=== PATIENT | male | born 1975 | race Two or more races ===

== ENCOUNTER 2016-11-18 22:27 | Emergency (ER) | payer BC ==
[~2016-11-18] VITALS: Ht 180.3 cm; Wt 89.4 kg
[2016-11-18] MEDS ORDERED: FAMOTIDINE (10MG/ML) 2ML VL IV ONE (23:45)
[2016-11-18] MEDS ORDERED: methylPREDNISolone SOD SUCC 125 MG/2 ML VL IV ONE (23:45)
[2016-11-18] MEDS ORDERED: diphenhdrAMINE HCL 50 MG/1 ML VL IV ONE (23:45)
[2016-11-19 05:30] VITALS: BP 113/59
== END 2016-11-19 04:44 | disposition home or self-care (01) ==
LOC: ER 22:43
DX: L51.9 Erythema multiforme, unspecified (principal)
CPT/HCPCS: 71010; 96374; 96375; 99284; J1200; J2930; J3490